=== PATIENT | female | born 1930 | race Caucasian/White ===

== ENCOUNTER 2016-12-31 15:45 | Inpatient (IN) | payer MEDICARE, BC ==
[2016-12-31] MEDS ORDERED: hydrOXYzine PAMOATE 25 MG CAP PO PRN (15:53)
[2016-12-31] MEDS ORDERED: ONDANSETRON 4 MG/2 ML VIAL IVP PRN (15:53)
[2016-12-31] MEDS ORDERED: HYDROmorphone 0.5 MG/0.5 ML SYRINGE IVP PRN ×3 (15:53)
[2016-12-31] MEDS ORDERED: SENNOSIDES-DOCUSATE SODIUM 1 EACH TAB PO PRN (15:53)
[2016-12-31] MEDS: HYDROcodone/APAP 5-325MG 1 EACH TAB PO PRN ×2 (18:36→23:49)
[2016-12-31 20:56] LABS: Glucose,Whole Blood 275 mg/dL (75-99)
[2016-12-31] MEDS: INSULIN LISPRO (humaLOG) 300 UNIT/3 ML VIAL SQ SCH (23:40)
[2017-01-01] MEDS: HYDROcodone/APAP 5-325MG 1 EACH TAB PO PRN ×4 (06:14→20:56)
[2017-01-01 07:06] LABS: Glucose,Whole Blood 174 mg/dL (75-99)
[2017-01-01] MEDS: INSULIN LISPRO (humaLOG) 300 UNIT/3 ML VIAL SQ SCH ×4 (08:39→20:51)
[2017-01-01] MEDS: ASPIRIN 81 MG PO SCH (08:52)
[2017-01-01] MEDS: ATORVASTATIN 10 MG TAB PO SCH (08:52)
[2017-01-01] MEDS: BUMETANIDE 0.5 MG TABLET PO SCH (08:52)
[2017-01-01] MEDS: CHOLECALCIFEROL 1,000 UNIT TAB PO SCH (08:53)
[2017-01-01] MEDS: glipiZIDE 10 MG TAB PO SCH ×4 (08:53→20:52)
[2017-01-01] MEDS: PIOGLITAZONE 30 MG TAB PO SCH (08:54)
[2017-01-01] MEDS: LINAGLIPTIN 5 MG TABLET PO SCH (08:54)
[2017-01-01] MEDS: metFORMIN 500 MG TAB PO SCH ×4 (08:54→20:52)
--- NOTE | 2017-01-01 08:59 | P.HPOR ---
History of Present Illness H&P Date: 01/01/17 Chief Complaint: Right humerus fracture Patient is an 86-year-old female who suffered a fall at home on Friday, 2016 after which she presented to the emergency department. She was found to have a proximal humerus fracture that was impacted and minimally displaced. She was discharged to home and to follow-up with orthopedics. She presented to our office yesterday 12/31/[address] Guy. He recommended admission for pain management, physical therapy and medical management and placement as she lives alone. She has pain at the fracture site and right shoulder as expected. She denies having any head trauma or loss of consciousness. She is denying any other complaints including numbness, tingling or weakness. She also denies chest pain, shortness breath, fever, chills, slurred speech, dizziness, headaches or other. Review of Systems All systems: negative Constitutional: Denies chills, Denies fever Eyes: denies blurred vision, denies pain Ears, nose, mouth and throat: Denies headache, Denies sore throat Cardiovascular: Denies chest pain, Denies shortness of breath Respiratory: Denies cough Gastrointestinal: Denies abdominal pain, Denies diarrhea, Denies nausea, Denies vomiting Genitourinary: Denies dysuria, Denies hematuria Musculoskeletal: Denies myalgias Integumentary: Denies pruritus, Denies rash Neurological: Denies numbness, Denies weakness Psychiatric: Denies anxiety, Denies depression Endocrine: Denies fatigue, Denies weight change Past Medical History Past Medical History: Cancer, Diabetes Mellitus, Hypertension, Osteoarthritis ( OA) Additional Past Medical History / Comment(s): 12-31-16 fall/proximal hummerus fx. kidney stones,uterine ca 1991-sx only, shingles 2012, lt eye macular degeneration. History of Any Multi-Drug Resistant Organisms: None Reported Past Surgical History: Appendectomy, Cholecystectomy, Hysterectomy, Orthopedic Surgery, Tonsillectomy Additional Past Surgical History / Comment(s): ryan cataracts, colonoscopy, ryan knee arthroscopy, ganglion cysts removed rt wrist. Past Anesthesia/Blood Transfusion Reactions: No Reported Reaction Smoking Status: Never smoker - Past Family History Mother Family Medical History: Congestive Heart Failure (CHF), Diabetes Mellitus, Hypertension Father Family Medical History: Diabetes Mellitus, Hypertension Additional Family Medical History / Comment(s): glaucoma Medications and Allergies Home Medications Medication Instructions Recorded Confirmed Type Acetaminophen-Codeine 300-30mg 1 tab PO Q8H PRN #10 tablet 12/30/16 12/31/16 Rx [Tylenol #3] Aspirin 81 mg PO DAILY 12/30/16 12/31/16 History Cholecalciferol [Vitamin D3] 2,000 unit PO DAILY 12/30/16 12/31/16 History Pioglitazone HCl [Actos] 30 mg PO DAILY 12/30/16 12/31/16 History Simvastatin [Zocor] 10 mg PO Q48H 12/30/16 12/31/16 History glyBURIDE/METFORMIN HCL 1 tab PO QID 12/30/16 12/31/16 History [glyBURIDE/METFORMIN HCL 5-500 mg] sitaGLIPtin [Januvia] 100 mg PO DAILY 12/30/16 12/31/16 History Bumetanide [BUMEX] 0.5 mg PO DAILY 12/31/16 12/31/16 History Allergies Allergy/AdvReac Type Severity Reaction Status Date / Time adhesive tape Allergy Rash/Hives Verified 12/31/16 18:50 Iodinated Contrast- Oral and Allergy Rash/Hives Verified 12/31/16 18:50 IV Dye mustard Allergy Rash/Hives Verified 12/31/16 18:50 shellfish derived [Shellfish] Allergy Rash/Hives Verified 12/31/16 18:50 Physical Examination Inspection of the right upper extremity shows some edema and ecchymoses at the right shoulder. Range of motion of the shoulder is not tested due to the fracture. There are no open wounds or lacerations. Motor is intact at the elbow, wrist, hand and digits. Sensation to light touch is intact throughout the right upper extremity. 2+ radial pulses present and less than 2 second cap refill present in all digits. Results X-rays of the right shoulder taken 12/30/2016 show an impacted comminuted right proximal humerus fracture at the surgical neck. There is minimal displacement or angulation. - Labs Labs: Abnormal Lab Results - Last 24 Hours (Table) 12/31/16 01/01/17 Range/Units 20:43 06:59 POC Glucose (mg/dL) 275 H 174 H (75-99) mg/dL - Diagnostic results Shoulder x-ray: report reviewed, image reviewed Assessment and Plan (1) Proximal humerus fracture Narrative/Plan: She'll continue with routine orthopedic protocol including pain management, physical therapy, medical management and DVT prophylaxis. Order to social work has been placed for rehab placement. We'll continue to follow make recommendations as appropriate. Current Visit: Yes Status: Acute Code(s): S42.209A - UNSP FRACTURE OF UPPER END OF UNSP HUMERUS, INIT FOR CLOS FX SNOMED Code(s): 752512831 Time with Patient: Less than 30
[2017-01-01 12:35] LABS: Glucose,Whole Blood 236 mg/dL (75-99)
[2017-01-01 17:05] LABS: Glucose,Whole Blood 155 mg/dL (75-99)
[2017-01-01 19:58] LABS: Glucose,Whole Blood 173 mg/dL (75-99)
[2017-01-01 20:24] LABS: Appearance,Urine Clear (Clear); Bilirubin,Urine Negative (Negative); Glucose,Urine (UA) Negative (Negative); Ketones,Urine Negative (Negative); Leukocyte Esterase,Urine Moderate (Negative); Mucus,Urine Rare /hpf; Nitrite,Urine Negative (Negative); Particle Count 2383; Protein,Urine 1+ (Negative); RBC,Urine 6 /hpf (0-5); Specific Gravity,Urine 1.015 (1.001-1.035); Squamous Epithelial Cell,Urine 2 /hpf (0-4); UA Billing (MACRO vs. MICRO) MICRO; Urobilinogen,Urine <2.0 mg/dL (<2.0); WBC,Urine 7 /hpf (0-5)
--- NOTE | 2017-01-01 22:40 | CONS ---
CONSULTATION ATTENDING PHYSICIAN: Dr. Guy. CONSULTING PHYSICIAN: Dr. Rodriguez. CONSULTATION REGARDING: Medical management. HISTORY OF PRESENT ILLNESS: This is an elderly female, 86 years of age, who was admitted to the hospital after having fallen at home. The patient has sustained a fractured humerus. The patient at home lives independently. She was trying to adjust the heater and she turned around. She forgot, the patient says, the cable, which she normally tucks it away, was loose on the floor and she tripped on that. The patient's toe got caught on that. She fell, landed on her right elbow and sustained a humeral fracture. No history of any head injury. No other injuries. The patient was seen in the emergency room and after evaluation has been sent home for a followup with orthopedic physician. She was seen by Orthopedics yesterday. The fall was the day prior. The patient was subsequently admitted to the hospital in view of this. PAST MEDICAL HISTORY: Significant for diabetes mellitus for the past 20 years, not well controlled. Patient refused increased medications. The patient does have a history of chronic anemia, has had a previous history of herpes zoster. Otherwise, degenerative arthritis and history of cancer of the uterus back about 20 years ago with no recurrence. No history of any lung disease, liver disease, kidney disease, ulcers, TB, hepatitis. No history of any rheumatic fever, myocardial infarction, CVA. PAST SURGICAL HISTORY: Tonsillectomy, cholecystectomy, total abdominal hysterectomy, bilateral knee arthroscopies, cataract surgery, right wrist cyst excision, colonoscopy previously. PERSONAL HISTORY: Never smoker. No alcohol. VACCINATION: Declines flu shots, pneumonia shots. ALLERGIES: TO IODINE, WHICH CAUSES A RASH. BAND-AID SENSITIVE. MEDICATIONS: Include: 1. Glipizide/metformin combination of 5/500 t.i.d. 2. Simvastatin 10 mg daily. 3. Januvia 100 mg daily. 4. 30 mg daily. 5. Aspirin 81 mg daily. 6. Bumex 1 mg p.r.n. SOCIAL HISTORY: Patient , lives alone. FAMILY MEDICAL HISTORY: Father at the age of 70, ASHD, diabetes mellitus. Mother at age of 90, CHF, diabetes mellitus. Patient had a brother who at the age of 86, diabetic. Sister still living, 88, history of hypothyroidism. The patient herself had a daughter who at the age of 45, possible ALS, possible multiple sclerosis. REVIEW OF SYSTEMS: NEURO: Denies any headaches, dizziness. No double vision, blurred vision. No symptoms of TIA, syncope, seizures. PSYCH: No anxiety, depression. CARDIAC: No chest pain, angina, palpitation. RESPIRATORY: Denies shortness of breath, cough, hemoptysis. GI: No nausea, vomiting, abdominal pain, diarrhea. : No symptoms of dysuria, hematuria, urgency, frequency. EXTREMITIES: Pain in the right shoulder. Trace edema at the ankles. Right arm in a sling. CONSTITUTIONAL: No fever, chills. PHYSICAL EXAMINATION: Vital signs revealed temperature 98.3, pulse 89, respirations 16, blood pressure 138/79, pulse ox 93% on room air. HEENT: Normocephalic. Pupils reactive. Oral cavity is moist. NECK: Supple. No JVD. No carotid bruits. No thyromegaly. CHEST: Clear to auscultation and percussion. CARDIAC: Normal S1, S2 with no gallops, murmur or rubs appreciated. ABDOMEN: Soft. No palpable masses. Bowel sounds normal. No organomegaly. No abdominal bruits. Extremities reveal trace edema at the ankles. Right upper extremity in a sling. NEUROLOGIC: Awake, alert, oriented x3 with well-coordinated movements. LABORATORY ASSESSMENT: Blood sugars which are elevated. ASSESSMENT: 1. Right humeral fracture post a mechanical fall. 2. Diabetes mellitus, poorly controlled. 3. Hypertension. 4. Degenerative arthritis. PLAN: The patient is presently stable. Continue present medical regimen. Patient's condition is discussed with the patient. Prognosis guarded. The patient to have chest x-ray and labs drawn. MMODL / IJN: [id number] /
[2017-01-02] MEDS: HYDROcodone/APAP 5-325MG 1 EACH TAB PO PRN ×4 (02:45→21:13)
[2017-01-02 07:06] LABS: Glucose,Whole Blood 221 mg/dL (75-99)
[2017-01-02 07:12] LABS: CHCM 30.8; HCT 29.1 % (34.0-46.0); HDW 2.28; HGB 9.1 gm/dL (11.4-16.0); Hypochromasia Slight; MCH 28.6 pg (25.0-35.0); MCHC 31.2 g/dL (31.0-37.0); MCV 91.5 fL (80.0-100.0); Mean Platelet Volume 8.8; RBC 3.18 m/uL (3.80-5.40); RDW 14.9 % (11.5-15.5); WBC 9.8 k/uL (3.8-10.6)
[2017-01-02 07:30] LABS: Anion Gap 9 mmol/L; Blood Urea Nitrogen 18 mg/dL (7-17); Calcium 8.6 mg/dL (8.4-10.2); Carbon Dioxide 22 mmol/L (22-30); Chloride 102 mmol/L (98-107); Glucose 211 mg/dL (74-99); Non-African American GFR(MDRD) >60 (>60 ml/min/1.73 sqM); Potassium 4.4 mmol/L (3.5-5.1); Sodium 133 mmol/L (137-145)
[2017-01-02] MEDS: glipiZIDE 10 MG TAB PO SCH ×4 (08:04→21:14)
[2017-01-02] MEDS: metFORMIN 500 MG TAB PO SCH ×4 (08:04→21:14)
[2017-01-02] MEDS: PIOGLITAZONE 30 MG TAB PO SCH (08:05)
[2017-01-02] MEDS: LINAGLIPTIN 5 MG TABLET PO SCH (08:05)
[2017-01-02] MEDS: BUMETANIDE 0.5 MG TABLET PO SCH (08:05)
[2017-01-02] MEDS: ASPIRIN 81 MG PO SCH (08:05)
[2017-01-02] MEDS: CHOLECALCIFEROL 1,000 UNIT TAB PO SCH (08:05)
[2017-01-02] MEDS: INSULIN LISPRO (humaLOG) 300 UNIT/3 ML VIAL SQ SCH ×4 (08:08→21:08)
--- NOTE | 2017-01-02 09:30 | P.PN ---
Subjective Progress Note Date: 01/02/17 Principal diagnosis: Right proximal humerus fracture Patient is an 86-year-old female seen at bedside this morning. We have been following her for a right proximal humerus fracture. This morning she has pain at the fracture site and right shoulder as expected. She has been in a sling. She is denying any other complaints including numbness, tingling or weakness. Past medical history includes diabetes mellitus type 2 which has been poorly controlled. She also relays that she's had intermittent shortness of breath which a chest x-ray has been ordered. Internal medicine has consulted and is following the patient. She she is currently denying chest pain , shortness breath, fever, chills, slurred speech, dizziness, headaches or other Objective - Vital Signs Vital signs: Vital Signs Temp 98.5 F 01/02/17 08:02 Pulse 89 01/02/17 08:02 Resp 16 01/02/17 08:02 BP 119/49 01/02/17 08:02 Pulse Ox 92 L 01/02/17 08:02 Intake & Output 01/01/17 01/02/17 01/02/17 18:59 06:59 18:59 Intake Total 440 Balance 440 Intake: Oral 440 Other: Voiding Method Toilet Toilet Toilet # Voids 2 2 - Exam Inspection of the right upper extremity shows some edema and ecchymoses at the right shoulder. Range of motion of the shoulder is not tested due to the fracture. There are no open wounds or lacerations. Motor is intact at the elbow, wrist, hand and digits. Sensation to light touch is intact throughout the right upper extremity. 2+ radial pulses present and less than 2 second cap refill present in all digits. - Constitutional General appearance: Present: no acute distress - Psychiatric Psychiatric: Present: A&O x's 3, appropriate affect, intact judgment & insight - Labs CBC & Chem 7: 01/02/17 06:53 01/02/17 06:53 Labs: Abnormal Lab Results - Last 24 Hours (Table) 01/01/17 01/01/17 01/01/17 Range/Units 06:55 11:31 17:03 RBC (3.80-5.40) m/uL Hgb (11.4-16.0) gm/dL Hct (34.0-46.0) % Sodium (137-145) mmol/L BUN (7-17) mg/dL Glucose (74-99) mg/dL POC Glucose (mg/dL) 236 H 155 H (75-99) mg/dL Hemoglobin A1c 8.8 H (4.0-6.0) % Urine Protein (Negative) Urine Blood (Negative) Ur Leukocyte Esterase (Negative) Urine RBC (0-5) /hpf Urine WBC (0-5) /hpf Hyaline Casts (0-2) /lpf Urine Mucus (None) /hpf 01/01/17 01/01/17 01/02/17 Range/Units 19:10 19:54 06:53 RBC 3.18 L (3.80-5.40) m/uL Hgb 9.1 L (11.4-16.0) gm/dL Hct 29.1 L (34.0-46.0) % Sodium (137-145) mmol/L BUN (7-17) mg/dL Glucose (74-99) mg/dL POC Glucose (mg/dL) 173 H (75-99) mg/dL Hemoglobin A1c (4.0-6.0) % Urine Protein 1+ H (Negative) Urine Blood Small H (Negative) Ur Leukocyte Esterase Moderate H (Negative) Urine RBC 6 H (0-5) /hpf Urine WBC 7 H (0-5) /hpf Hyaline Casts 6 H (0-2) /lpf Urine Mucus Rare H (None) /hpf 01/02/17 01/02/17 Range/Units 06:53 07:04 RBC (3.80-5.40) m/uL Hgb (11.4-16.0) gm/dL Hct (34.0-46.0) % Sodium 133 L (137-145) mmol/L BUN 18 H (7-17) mg/dL Glucose 211 H (74-99) mg/dL POC Glucose (mg/dL) 221 H (75-99) mg/dL Hemoglobin A1c (4.0-6.0) % Urine Protein (Negative) Urine Blood (Negative) Ur Leukocyte Esterase (Negative) Urine RBC (0-5) /hpf Urine WBC (0-5) /hpf Hyaline Casts (0-2) /lpf Urine Mucus (None) /hpf Assessment and Plan (1) Proximal humerus fracture Narrative/Plan: She'll continue with routine orthopedic protocol including pain management, physical therapy, medical management and DVT prophylaxis. Labs have shown protocol controlled diabetes which is being addressed. Urinalysis shows a probable UTI where I have ordered Bactrim DS for treatment. Chest x-ray has been ordered for placement as well as she's had complaints of intermittent shortness of breath. Internal medicine is following. We'll continue to follow make recommendations as appropriate. Expect transfer to [facility] in the next 1-2 days pending further results and internal medicine approval. Current Visit: Yes Status: Acute Priority: Medium Code(s): S42.209A - UNSP FRACTURE OF UPPER END OF UNSP HUMERUS, INIT FOR CLOS FX SNOMED Code(s): 018906998 Time with Patient: Less than 30
--- NOTE | 2017-01-02 09:32 | XR ---
EXAMINATION TYPE: XR chest 1V DATE OF EXAM: 01/02/2017 COMPARISON: 07/30/2012 HISTORY: Difficulty breathing TECHNIQUE: Single frontal view of the chest is obtained. FINDINGS: The heart is enlarged and is atherosclerotic change aorta with bilateral infiltrate and sm all effusion. Correlate for mild CHF. Prominence of the right perihilar region noted which may be rel ated infiltrate. Follow to resolution to exclude underlying neoplasm. IMPRESSION: 1. Bilateral infiltrate and small effusion with cardiomegaly. Correlate for mild central venous conge stion. 2. Prominence the right hilum may reflect slight patient rotation rather than adenopathy or mass or e justino infiltrate. Short-term follow-up could be obtained for confirmation.
[2017-01-02] MEDS: SULFAMETHOX-TMP 800-160MG 1 EACH TAB PO SCH ×2 (10:16→21:15)
[2017-01-02 11:33] LABS: Glucose,Whole Blood 256 mg/dL (75-99)
[2017-01-02 16:19] LABS: Glucose,Whole Blood 181 mg/dL (75-99)
[2017-01-02 19:54] LABS: Glucose,Whole Blood 230 mg/dL (75-99)
[2017-01-02] MEDS ORDERED: INSULIN DETEMIR 100 UNIT/ML 10 ML VIAL SQ SCH (21:00)
[2017-01-02] MEDS ORDERED: IBUPROFEN 400 MG TAB PO PRN (22:55)
--- NOTE | 2017-01-02 23:11 | PN ---
PROGRESS NOTE ATTENDING PHYSICIAN: Dr. Guy. CONSULTING PHYSICIAN: Dr. Rodriguez. CHIEF COMPLAINT: Re-evaluation. HISTORY OF PRESENT ILLNESS: This is an 86-year-old female who was admitted to the hospital with a fractured right humerus. The patient had a mechanical fall at home. The patient has a history of diabetes mellitus. She is actually doing fairly well. Her blood sugars are running high, though. She has had a history of elevated blood sugars and refused increased medications, as she says she has no symptoms. REVIEW OF SYSTEMS: NEURO: Denies any headaches, dizziness. PSYCH: No anxiety. CARDIAC: No chest pain, angina, palpitations. RESPIRATORY: No shortness of breath, cough, hemoptysis. GI: No nausea, vomiting, abdominal pain, diarrhea, constipation. : No symptoms of dysuria, hematuria. EXTREMITIES: Pain in the right shoulder. CONSTITUTIONAL: No fever or chills. PHYSICAL EXAMINATION: Vital signs reveal temperature of 100.1, pulse 96 to 101 range, respirations 18, blood pressure 138/74. HEENT: Normocephalic. NECK: No JVD. CHEST: Clear to auscultation. CARDIAC: Normal S1, S2 with no gallop. Systolic murmur 2/6 left sternal border. ABDOMEN: Soft. Bowel sounds present. Extremities reveal right upper extremity in a sling. LOWER EXTREMITIES: No edema. NEUROLOGICAL: Awake, alert, oriented with well-coordinated movements. LABORATORY ASSESSMENT: Hemoglobin of 9.1, white count 0.98, platelets of 160. Sodium 138, potassium 4.4, chloride 102, CO2 of 22, BUN 18, creatinine 0.77, glucose is 211. Calcium was normal. Urinalysis is unremarkable except for negative nitrite, moderate leukocyte esterase. ASSESSMENT: 1. Fractured right humerus, post mechanical fall. 2. Chronic anemia. 3. Diabetes mellitus, uncontrolled. 4. Hypertension on medical therapy. PLAN: Patient is stable. Continue present medical regimen. Patient's condition discussed with the patient and prognosis is guarded. She declines any additional treatments for diabetes. We explained to the patient that we will continue the use insulin while she at the hospital and at the nursing facility. She does not want to get involved in taking any insulin shots at home. The patient's status discussed with the patient.. MMODL / IJN: [id number] /
[2017-01-03 03:15] VITALS: RESP 16
[2017-01-03] MEDS: HYDROcodone/APAP 5-325MG 1 EACH TAB PO PRN (04:51)
[2017-01-03 07:01] LABS: Glucose,Whole Blood 195 mg/dL (75-99)
[2017-01-03 07:35] VITALS: TEMP 97.9
--- NOTE | 2017-01-03 08:58 | P.DS ---
Providers Date of admission: 12/31/16 17:39 Expected date of discharge: 01/03/17 Attending physician: Robert Guy Consults: 12/31/16 15:53 Consult Physician Routine Consulting Provider: Keith Rodriguez Consult Reason/Comments: medical management Do you want consulting provider notified?: Yes Primary care physician: Stated None - Discharge Diagnosis(es) (1) Proximal humerus fracture Patient was admitted from our office on 12/31/2016 for a right proximal humerus fracture with related pain control issues, uncontrolled diabetes and medical management. Her hospital course has remained without complication. On day of discharge she is afebrile, vital signs stable, labs within acceptable ranges, tolerating by mouth meds and diet, voiding without difficulty, positive flatus, denies abdominal pain or calf pain, pain is controlled on oral pain medication and has no new complaints. No wounds, neurovascular status is intact, calf is soft and nontender, abdomen soft and nontender. Review of systems is negative for numbness, tingling, fever, chills, chest pain, shortness breath, nausea, vomiting, dizziness, headaches, slurred speech or other. Current Visit: Yes Status: Acute Priority: Medium Patient Condition at Discharge: Fair Plan - Discharge Summary Discharge Rx Participant: Yes New Discharge Prescriptions: New Bumetanide [BUMEX] 1 mg PO DAILY tab Ibuprofen [Motrin] 400 mg PO Q6HR PRN tab PRN Reason: Fever Insulin Detemir [Levemir] 20 unit SQ HS vial INSULIN LISPRO (humaLOG) [humaLOG (formulary)] 0 unit SQ ACHS vial Sennosides-Docusate Sodium [Senokot-S] 2 each PO HS PRN tab PRN Reason: Constipation Docusate [Colace] 100 mg PO BID #60 capsule HYDROcodone/APAP 5-325MG [[place] 5-325] 1 tab PO Q4HR PRN #60 tab PRN Reason: Pain Continue sitaGLIPtin [Januvia] 100 mg PO DAILY glyBURIDE/METFORMIN HCL [glyBURIDE/METFORMIN HCL 5-500 mg] 1 tab PO QID Simvastatin [Zocor] 10 mg PO Q48H Cholecalciferol [Vitamin D3] 2,000 unit PO DAILY Aspirin 81 mg PO DAILY Discontinued Pioglitazone HCl [Actos] 30 mg PO DAILY Acetaminophen-Codeine 300-30mg [Tylenol w/codeine #3] 1 tab PO Q8H PRN #10 tablet PRN Reason: Pain Bumetanide [BUMEX] 0.5 mg PO DAILY Discharge Medication List Aspirin 81 mg PO DAILY 12/30/16 [History] Cholecalciferol [Vitamin D3] 2,000 unit PO DAILY 12/30/16 [History] Simvastatin [Zocor] 10 mg PO Q48H 12/30/16 [History] glyBURIDE/METFORMIN HCL [glyBURIDE/METFORMIN HCL 5-500 mg] 1 tab PO QID [History] sitaGLIPtin [Januvia] 100 mg PO DAILY 12/30/16 [History] Bumetanide [BUMEX] 1 mg PO DAILY tab 01/03/17 [Rx] Docusate [Colace] 100 mg PO BID #60 capsule 01/03/17 [Rx] HYDROcodone/APAP 5-325MG [[place] 5-325] 1 tab PO Q4HR PRN #60 tab 01/03/17 [Rx] INSULIN LISPRO (humaLOG) [humaLOG (formulary)] 0 unit SQ ACHS vial 01/03/17 [Rx ] Ibuprofen [Motrin] 400 mg PO Q6HR PRN tab 01/03/17 [Rx] Insulin Detemir [Levemir] 20 unit SQ HS vial 01/03/17 [Rx] Sennosides-Docusate Sodium [Senokot-S] 2 each PO HS PRN tab 01/03/17 [Rx] Follow up Appointment(s)/Referral(s): Robert Guy MD [Medical Doctor] - 1 Week Activity/Diet/Wound Care/Special Instructions: Maintain sling Nonweightbearing right upper extremity Follow up with Dr. Guy in office Take meds as directed Discharge Disposition: TRANSFER TO SNF/ECF
[2017-01-03] MEDS ORDERED: BUMETANIDE 1 MG TAB PO SCH (09:00)
[2017-01-03] MEDS: metFORMIN 500 MG TAB PO SCH (09:02)
[2017-01-03] MEDS: INSULIN LISPRO (humaLOG) 300 UNIT/3 ML VIAL SQ SCH (09:03)
[2017-01-03] MEDS: ATORVASTATIN 10 MG TAB PO SCH (09:03)
[2017-01-03] MEDS: glipiZIDE 10 MG TAB PO SCH (09:03)
[2017-01-03] MEDS: ASPIRIN 81 MG PO SCH (09:03)
[2017-01-03] MEDS: LINAGLIPTIN 5 MG TABLET PO SCH (09:04)
[2017-01-03] MEDS: CHOLECALCIFEROL 1,000 UNIT TAB PO SCH (09:04)
[2017-01-03 09:07] VITALS: BP 104/68; PULSE 85
[2017-01-03] MEDS ORDERED: INSULIN DETEMIR 100 UNIT/ML 10 ML VIAL SQ SCH (21:00)
--- NOTE | 2017-01-04 07:16 | PN ---
PROGRESS NOTE ATTENDING PHYSICIAN: Dr. Guy. CONSULTING PHYSICIAN: Dr. Rodriguez. PROGRESS NOTE DATED: 01/03/2017. CHIEF COMPLAINT: Re-evaluation. HISTORY OF PRESENT ILLNESS: This is an 86-year-old female was admitted to the hospital following a fall at home and a fracture of the right humerus. The patient has been actually doing fairly well. She has underlying diabetes mellitus with elevated blood sugars. The patient has refused using insulin or any additional medications at home. The patient's blood sugars are under fair control. The patient yesterday had a low-grade temperature. No clear evidence of any infection. Chest x-ray shows small pleural effusions. She does have some cardiomegaly. The patient's urinalysis was not indicative of a urinary tract infection. The patient's Bactrim had been discontinued. The patient is actually feeling fairly well. REVIEW OF SYSTEMS: NEURO: Denies any headaches, dizziness. PSYCH: No anxiety. CARDIAC: Denies chest pain, angina, palpitations. RESPIRATORY: No shortness of breath, cough. GI: No nausea, vomiting, abdominal pain, diarrhea. : No symptoms of dysuria, hematuria, urgency, frequency. EXTREMITIES: Denied pain except the right shoulder and scapula. CONSTITUTIONAL: No fever, chills. PHYSICAL EXAMINATION: Pleasant female in no distress. VITAL SIGNS: Temperature 97.9, pulse 58, respirations 16, blood pressure 102/48, pulse ox 93% 2 L. HEENT: Normocephalic. NECK: No JVD. CHEST: Examination clear to auscultation. CARDIAC: Normal S1, S2 with no gallop. Systolic murmur 2/6 left sternal border. ABDOMEN: Soft. Bowel sounds present. EXTREMITIES: Reveal trace edema lower extremities. Right upper extremity in sling. NEUROLOGIC: Awake, alert, oriented with well coordinated movements of the left upper extremity and lower extremities. LAB ASSESSMENT: Blood sugar of 195 this morning. ASSESSMENT: 1. Diabetes mellitus with elevated blood sugars. 2. Fractured right humerus. 3. Chronic anemia. 4. Cardiomegaly. PLAN: The patient is stable. Continue present medical regimen. Patient's condition discussed with the patient. The plan is for the patient to be transferred to nursing facility for rehab. The patient is stable at present. Bumex has been increased to 1 mg daily. MMODL / IJN: [id number] /
== END 2017-01-03 13:08 | DRG 563 ==
LOC: 3SUR 17:39
PROVIDERS: ADMIT Orthopaedic Surgery; ATTEND Orthopaedic Surgery
DX: S42.201A Unspecified fracture of upper end of right humerus, initial encounter for closed fracture (principal); E11.65 Type 2 diabetes mellitus with hyperglycemia; I11.9 Hypertensive heart disease without heart failure; N39.0 Urinary tract infection, site not specified; D64.9 Anemia, unspecified; H35.30 Unspecified macular degeneration; M19.90 Unspecified osteoarthritis, unspecified site; W18.30XA Fall on same level, unspecified, initial encounter; Y92.009 Unspecified place in unspecified non-institutional (private) residence as the place of occurrence of the external cause; Z79.82 Long term (current) use of aspirin; Z79.84 Long term (current) use of oral hypoglycemic drugs; Z79.899 Other long term (current) drug therapy; Z82.49 Family history of ischemic heart disease and other diseases of the circulatory system; Z83.3 Family history of diabetes mellitus; Z85.42 Personal history of malignant neoplasm of other parts of uterus; Z87.442 Personal history of urinary calculi; Z90.710 Acquired absence of both cervix and uterus
CPT/HCPCS: 71010; 80048; 81001; 83036; 85027; 87040; 87086; 96374; 99284

== ENCOUNTER → 2017-07-16 | Outpatient (CLI) | payer MEDICARE, BC ==
--- NOTE | 2017-07-16 14:04 | US ---
EXAMINATION TYPE: US kidneys/renal and bladder DATE OF EXAM: 07/16/2017 COMPARISON: None CLINICAL HISTORY: 86-year-old female R10.9 R ABD PAIN. Right flank pain TECHNIQUE: Multiple sonographic images of the kidneys and bladder are obtained. FINDINGS: EXAM MEASUREMENTS: Right Kidney: 11.4 x 5.2 x 5.4 cm Left Kidney: 10.7 x 4.3 x 5.0 cm Right Kidney: Mild to moderate hydronephrosis identified, unable to follow ureter due to overlying kvng wel gas. Lower pole echogenic focus seen= 0.6 x 0.7 cm. Left Kidney: No hydronephrosis Bladder: mildly distended Left Jet seen IMPRESSION: 1. Mild to moderate right-sided hydronephrosis. The right ureteral jet is not seen. Ureteral obstruct ion is suggested. 2. 7 mm nonobstructive right lower pole renal calculus.
== END | disposition home or self-care (01) ==
LOC: RADUSWWP 12:56
PROVIDERS: ATTEND Internal Medicine
DX: N13.2 Hydronephrosis with renal and ureteral calculous obstruction (principal)
CPT/HCPCS: 76770

== ENCOUNTER → 2017-07-18 | Outpatient (CLI) | payer MEDICARE, BC ==
--- NOTE | 2017-07-18 15:58 | CT ---
EXAMINATION TYPE: CT abdomen pelvis wo con DATE OF EXAM: 07/18/2017 COMPARISON: NONE HISTORY: Right flank pain CT DLP: 698.4 mGycm Automated exposure control for dose reduction was used. TECHNIQUE: Helical acquisition of images from the lung bases through the pelvis. FINDINGS: Lack of contrast could compromise sensitivity. LUNG BASES: No significant abnormality is appreciated. AORTA: No significant abnormality is appreciated. LIVER/GB: Patient is post cholecystectomy. Liver is unremarkable. Colonic interposition present anter ior to the liver. PANCREAS: No significant abnormality is seen. SPLEEN: No significant abnormality is seen. ADRENALS: No significant abnormality is seen. KIDNEYS: Small punctate right kidney stones are present approximately 4 in number on the right, 2 on the left, there is right-sided hydronephrosis. Proximal right ureteral calculus measures 1 cm in grea test dimension. REPRODUCTIVE ORGANS: Uterus and adnexal structures are not seen.. URINARY BLADDER: No significant abnormality is seen. BOWEL: No significant abnormality is seen. FREE AIR: No Free Air is visible. ASCITES: None visible. PELVIC ADENOPATHY: None visualized. RETROPERITONEAL ADENOPATHY: No Retroperitoneal Adenopathy visible. OSSEOUS STRUCTURES: Degenerative disc changes in the visualized spine. There is a spinal curvature. IMPRESSION: OBSTRUCTIVE PROXIMAL RIGHT URETERAL CALCULUS. BILATERAL NEPHROLITHIASIS. NONCONTRAST EXAM.
== END ==
LOC: RADCTMAIN 15:23
PROVIDERS: ATTEND Internal Medicine
DX: N20.2 Calculus of kidney with calculus of ureter (principal)
CPT/HCPCS: 74176

== ENCOUNTER → 2017-08-19 | Outpatient (CLI) | payer MEDICARE, BC ==
--- NOTE | 2017-08-19 23:14 | US ---
EXAMINATION TYPE: US kidneys/renal and bladder DATE OF EXAM: 08/19/2017 COMPARISON: Ultrasound July 16, [address] abdomen and pelvis July 18, 2017 CLINICAL HISTORY: N13.30 Unspecified Hydronephrosis; followup post right renal lithotripsy to assess for bladder stones per patient history EXAM MEASUREMENTS: Right Kidney: 11.2 x 6.4 x 5.3 cm Left Kidney: 10.6 x 5.3 x 4.6 cm Post Void Residual Volume: 1.3 mL Right Kidney: mild hydronephrosis; multiple hyperechoic foci consistent with small calculi. Left Kidney: No hydronephrosis or masses seen Bladder: not fully distended Bilateral Jets seen: no, only left ureteral jet is seen after 3 minute observation Normal Post Void Residual: yes Bladder is poorly distended and thus suboptimally evaluated. There is persistent fairly moderate righ t-sided hydronephrosis. Hyperechoic foci are felt to reflect small renal calculi are redemonstrated in right kidney not as we ll seen in left kidney. IMPRESSION: Persistent moderate right-sided hydronephrosis not significantly changed from prior studies, cannot e xclude persistent obstructing calculus in the right ureter despite interval lithotripsy as distal rig ht ureter jet in the bladder is not identified.
== END | disposition home or self-care (01) ==
LOC: RADUSWWP 14:57
PROVIDERS: ATTEND Urology
DX: N13.30 Unspecified hydronephrosis (principal)
CPT/HCPCS: 76770

== ENCOUNTER → 2017-10-13 | Outpatient (CLI) | payer MEDICARE, BC ==
--- NOTE | 2017-10-13 16:06 | US ---
EXAMINATION TYPE: US kidneys/renal and bladder DATE OF EXAM: 10/13/2017 COMPARISON: US & CT CLINICAL HISTORY: N13.30 hydronephrosis. post lithotripsy EXAM MEASUREMENTS: Right Kidney: 11.5 x 4.2 x 5.1 cm Left Kidney: 11.2 x 5.1 x 6.1 cm Right Kidney: No hydronephrosis or masses seen Left Kidney: No hydronephrosis or masses seen Bladder: wnl Bilateral Jets seen: Yes There is no evidence for hydronephrosis at this point in time. No nephrolithiasis is seen. No joaquina s are identified. The urinary bladder is anechoic. Bilateral ureteral jets are seen. IMPRESSION: No hydronephrosis present at this time.
== END | disposition home or self-care (01) ==
LOC: RADUSWWP 15:27
PROVIDERS: ATTEND Urology
DX: N13.30 Unspecified hydronephrosis (principal); Z93.6 Other artificial openings of urinary tract status; Z98.890 Other specified postprocedural states
CPT/HCPCS: 76770